=== PATIENT | male | born 1985 | race Caucasian/White ===

== ENCOUNTER 2017-03-15 04:55 | Emergency (ER) | payer BC, OTHER, SELFPAY ==
[~2017-03-15] VITALS: Ht 177.8 cm; Wt 95.5 kg
[2017-03-15] MEDS ORDERED: IBUP-1022 PO (05:25)
[2017-03-15] MEDS ORDERED: DERMABOND TOPICAL SKIN ADHESIVE TOP ONE (07:15)
[2017-03-15] MEDS ORDERED: ADACEL/BOOSTRIX VACCINE (DIPHTH/PERTUSS/ACELL/TETANUS)0.5ML SYR (90715) IM ONE (07:15)
--- NOTE | 2017-03-15 07:50 | REPUSA ---
HISTORY: Trauma. TECHNIQUE: Computerized tomography of the orbits without the use of intravenous contrast material obt ained in axial and coronal planes. COMMENTS: Right intraorbital anterior facial soft tissue contusion. There is no fracture or dislocation. Mild chronic mucosal inflammatory changes of the maxillary sinuses and ethmoid air cells. The globes of the eyes disclose bilaterally symmetrical size and shape and normal appearance of the v arious layers. The intraocular lenses and the vitreous are unremarkable. The orbits show bilaterally symmetrical shape. The orbital fat and the intraorbital portions of the optic nerves are bilaterally symmetric and normal in size, shape and course. The extraocular muscles are unremarkable. The intracranial visual pathways show no abnormality. The optic chiasm and visualized portions of the optic tracts are normal. IMPRESSION: Right facial infraorbital soft tissue contusion. Chronic sinusitis. No fracture. Thank you for your kind referral of this patient.
[2017-03-15 08:13] VITALS: BP 160/90
== END 2017-03-15 08:20 | disposition home or self-care (01) ==
LOC: M ED 04:55
DX: S01.411A Laceration without foreign body of right cheek and temporomandibular area, initial encounter (principal); X99.8XXA Assault by other sharp object, initial encounter; Y92.9 Unspecified place or not applicable; Y93.9 Activity, unspecified; Y99.9 Unspecified external cause status; F17.210 Nicotine dependence, cigarettes, uncomplicated

== ENCOUNTER → 2018-02-15 | Outpatient (REF) | payer BC | LOC: M SMT 14:57 | DX: Z30.9 Encounter for contraceptive management, unspecified (principal) | CPT/HCPCS: 88302 ==

== ENCOUNTER 2018-09-22 16:42 | Emergency (ER) | payer BC ==
[~2018-09-22] VITALS: Ht 175.3 cm; Wt 90.9 kg
[~2018-09-22 16:42] MED LIST: IBUP-1022 PO
[2018-09-22] MEDS ORDERED: ONDANSETRON 4MG/2ML VIAL (J2405) IV ONE (18:45)
[2018-09-22] MEDS ORDERED: NS 1,000 ML IV ONE (18:45)
[2018-09-22 19:16] LABS: BASO # 0.1 10^3/uL (0.0-0.2); BASO % 1.2 % (0.0-1.0); EOS # 0.5 10^3/uL (0.0-0.50); EOS % 5.2 % (0.0-3.0); HEMOGLOBIN 16.8 g/dl (13.5-17.5); LYMPH # 2.9 10^3/uL (1.5-4.5); LYMPH % 29.1 % (24.0-44.0); MEAN CORPUSCULAR HEMOGLOBIN 31.9 pg (27.0-33.0); MEAN CORPUSCULAR HGB CONC 35.7 g/dl (32.0-36.5); MEAN CORPUSCULAR VOLUME 89.4 fl (80.0-96.0); MONO # 1.1 10^3/uL (0.0-0.8); MONO % 10.7 % (0.0-5.0); NEUTROPHILS # 5.3 10^3/uL (1.8-7.7); NEUTROPHILS % 53.5 % (36.0-66.0); PLATELET COUNT, AUTOMATED 353 10^3/uL (150-450); RED BLOOD COUNT 5.26 10^6/uL (4.30-6.10); WHITE BLOOD COUNT 9.9 10^3/uL (4.0-10.0)
[2018-09-22 19:27] LABS: INR 1.07
[2018-09-22 19:28] LABS: PARTIAL THROMBOPLASTIN TIME 34.3 SECONDS (25.4-37.6)
--- NOTE | 2018-09-22 19:29 | REP ---
CHEST, TWO VIEWS: There is no evidence of acute infiltrate. No pleural effusion is seen. The heart is normal in size. The mediastinal silhouette is unremarkable. The visualized osseous structures are intact. IMPRESSION: No acute pulmonary disease. Electronically Signed by Iftikhar Haq MD 09/22/2018 07:48 P
--- NOTE | 2018-09-22 19:45 | REP ---
CT BRAIN WITHOUT CONTRAST: CT brain was performed without IV contrast. Ventricles are normal in size and position. There is no midline shift or mass effect. Haq-white differentiation is well maintained. There is no acute intracranial hemorrhage. There is no extra-axial fluid collection. Bone window examination demonstrates mild mucosal thickening in the left ethmoid sinuses. IMPRESSION: Mild mucosal thickening left ethmoid sinuses. Otherwise negative noncontrast CT brain. Electronically Signed by Iftihkar Haq MD 09/22/2018 07:49 P
[2018-09-22 19:46] LABS: BLOOD UREA NITROGEN 13 MG/DL (7-18); CALCIUM LEVEL 9.4 MG/DL (8.5-10.1); CARBON DIOXIDE LEVEL 29 MEQ/L (21-32); CHLORIDE LEVEL 102 MEQ/L (98-107); CPK CREATINE PHOSPHOKINASE 297 U/L (39-308); CREATININE FOR GFR 0.93 MG/DL (0.70-1.30); GLOMERULAR FILTRATION RATE > 60.0 (>60); GLUCOSE, FASTING 85 MG/DL (70-100); MB/CK RELATIVE INDEX 0.64 (< OR =4); POTASSIUM SERUM 4.3 MEQ/L (3.5-5.1); SODIUM LEVEL 138 MEQ/L (136-145); TROPONIN I < 0.02 NG/ML (< 0.10)
[2018-09-22 20:11] VITALS: BP 148/90
--- NOTE | 2018-09-22 21:11 | ECGEPIP ---
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
== END 2018-09-22 20:37 | disposition home or self-care (01) ==
LOC: M ED 16:42
DX: R55 Syncope and collapse (principal); R04.0 Epistaxis; R03.0 Elevated blood-pressure reading, without diagnosis of hypertension; Z88.0 Allergy status to penicillin; Z88.1 Allergy status to other antibiotic agents; Z88.2 Allergy status to sulfonamides; F17.210 Nicotine dependence, cigarettes, uncomplicated
CPT/HCPCS: 70450; 71046; 80048; 82550; 82553; 84443; 84484; 85025; 85610; 85730; 93005; 96361; 96374; 99284; J2405